=== PATIENT | male | born 1970 ===

== ENCOUNTER 2018-04-30 12:14 | Emergency (ER) | payer MEDICARE, MEDICAID ==
[2018-04-30 12:14] VITALS: BMI 24.7
[2018-04-30 12:46] VITALS: RESP 18; O2SAT 100
--- NOTE | 2018-04-30 14:11 | C.PDOC ---
History Of Present Illness 48yo male, comes to ER complaining of epigastric pain. Patient has a history of ESRD and is on dialysis MWF. Patient states his symptoms are similar to 3 prior episodes of pancreatitis. Otherwise, patient denies any fever, chills, chest pain, vomiting, diarrhea. He offers no additional medical complaints. Time Seen by Provider: 04/30/18 13:16 Chief Complaint (Nursing): Abdominal Pain History Per: Patient History/Exam Limitations: no limitations Onset/Duration Of Symptoms: Days Current Symptoms Are (Timing): Still Present Location Of Pain/Discomfort: Epigastric Quality Of Discomfort: "Pain" Past Medical History Reviewed: Historical Data, Nursing Documentation, Vital Signs Vital Signs: Last Vital Signs Temp 99 F 04/30/18 14:30 Pulse 50 L 04/30/18 14:30 Resp 18 04/30/18 14:30 BP 111/72 04/30/18 14:30 Pulse Ox 100 04/30/18 14:30 - Medical History PMH: Arthritis, Asthma, Fractures, HTN, Osteoporosis, End Stage Renal Disease, Chronic Kidney Disease Surgical History: Pacemaker Family History: States: Unknown Family Hx - Social History Hx Alcohol Use: No Hx Substance Use: No Review Of Systems Except As Marked, All Systems Reviewed And Found Negative. Constitutional: Negative for: Fever, Chills Cardiovascular: Negative for: Chest Pain Respiratory: Negative for: Shortness of Breath Gastrointestinal: Positive for: Abdominal Pain Physical Exam - Physical Exam Appears: Non-toxic, No Acute Distress Skin: Warm, Dry Head: Atraumatic, Normacephalic Eye(s): bilateral: Normal Inspection, PERRL, EOMI Chest: Symmetrical Cardiovascular: Rhythm Regular Respiratory: Normal Breath Sounds Gastrointestinal/Abdominal: Tenderness (epigastric), No Guarding, No Rebound, Other (thin abodmen) Back: Other (severe kyphosis) Extremity: Other (weak, thin extremities. ) Neurological/Psych: Oriented x3 Additional Physical Exam Comments: Patient is weak, thin and is typically wheel chair bound due to hyperparathyroidm, low calcium and bone weakness. Patient has internal cardiac pacemaker due to LBBB, placed endoscopically but not on the chest. Short of stature ED Course And Treatment - Laboratory Results Result Diagrams: 04/30/18 14:35 04/30/18 14:35 Lab Interpretation: Normal (lipase neg.) O2 Sat by Pulse Oximetry: 100 (RA) Pulse Ox Interpretation: Normal - Radiology CXR: Interpreted by Me CXR Interpretation: Yes: No Acute Disease - Other Rad abd x 2 X-Ray: Interpreted by Me (increased bowel gas, no obst/FA) Reevaluation Time: 15:45 Reassessment Condition: Improved Medical Decision Making Medical Decision Making: Plan: * Labs * Morphine 4mg IVP * CT Abdomen/Pelvis w/o contrast * XR Obstructive series bowel discomfort LOW susp of mes ischemia/pancreatitis normal labs/Lipase CT no acute findings. Disposition Doctor Will See Patient In The: Office Counseled Patient/Family Regarding: Studies Performed, Diagnosis - Disposition Disposition: HOME/ ROUTINE Disposition Time: 15:46 Condition: GOOD Forms: [employer] ([place]rian) - Clinical Impression Clinical Impression: Abdominal colic - Scribe Statement The provider has reviewed the documentation as recorded by the Jakob Ken Provider Attestation: All medical record entries made by the Jakob were at my direction and personally dictated by me. I have reviewed the chart and agree that the record accurately reflects my personal performance of the history, physical exam, medical decision making, and the department course for this patient. I have also personally directed, reviewed, and agree with the discharge instructions and disposition.
[2018-04-30 14:38] LABS: BASO # 0.1 K/uL (0.0-0.2); EOS # 0.1 K/uL (0.0-0.7); HEMOGLOBIN 13.1 g/dL (12.0-18.0); LYMPH # 0.9 K/uL (1.0-4.3); LYMPH % 13.1 % (20.0-40.0); MEAN CELL VOLUME 91.5 fL (80.0-94.0); MEAN CORPUSCULAR HEMOGLOBIN 31.3 pg (27.0-31.0); MEAN CORPUSCULAR HGB CONC 34.3 g/dL (33.0-37.0); MEAN PLATELET VOLUME 8.2 fL (7.2-11.7); MONO # 0.5 K/uL (0.0-0.8); MONO % 7.3 % (0.0-10.0); NEUT # 5.3 K/uL (1.8-7.0); NEUT % 77.6 % (50.0-75.0); RBC 4.19 Mil/uL (4.40-5.90); RED CELL DISTRIBUTION WIDTH 16.4 % (11.5-14.5); WHITE BLOOD COUNT 6.9 K/uL (4.8-10.8)
[2018-04-30] MEDS ORDERED: Morphine 4 MG/ML VIAL ONE (14:39)
[2018-04-30 14:44] VITALS: PULSE 50
[2018-04-30 14:58] LABS: ALB/GLOB RATIO 1.3 (1.0-2.1); ALBUMIN 4.7 g/dL (3.5-5.0)
--- NOTE | 2018-04-30 15:04 | CT ---
Date of service: 04/30/2018 PROCEDURE: CT Abdomen and Pelvis without intravenous contrast HISTORY: epigastric, h/o pancreatitis x 3 COMPARISON: None. TECHNIQUE: CT scan of the abdomen and pelvis was performed without administration of intravenous contrast. Oral contrast was not administered. Coronal and sagittal reformatted images were obtained. . Radiation dose: Total exam DLP = 218.74 mGy-cm. This CT exam was performed using one or more of the following dose reduction techniques: Automated exposure control, adjustment of the mA and/or kV according to patient size, and/or use of iterative reconstruction technique. FINDINGS: LOWER THORAX: There is bibasilar subsegmental atelectasis. LIVER: Normal in size. No intrahepatic ductal dilatation. GALLBLADDER AND BILE DUCTS: The gallbladder is distended. No calcified gallstones or wall thickening. PANCREAS: Evaluation of the pancreas is difficult due to paucity of intraperitoneal fat and absence of oral and intravenous contrast. There is mild pancreatic ductal dilatation which measures 8 mm. SPLEEN: Moderate splenomegaly. ADRENALS: Normal in size. No discrete nodule. KIDNEYS AND URETERS: Small atrophic kidneys. No hydronephrosis. VASCULATURE: No aortic aneurysm. The extensive atherosclerotic vascular calcifications secondary to renal failure. BOWEL: The small bowel loops are normal in caliber. The colon is normal in size. No bowel dilatation or wall thickening. No bowel obstruction. APPENDIX: The appendix is not distinctly identified. No inflammatory changes in the right lower quadrant PERITONEUM: No free fluid. No free air. LYMPH NODES: No enlarged lymph nodes. BLADDER: Well distended and grossly normal in appearance. REPRODUCTIVE: The uterus is normal in size BONES: No acute fracture. Osseous changes of renal osteodystrophy. Status post total left hip arthroplasty. OTHER FINDINGS: None. IMPRESSION: This examination is limited in the absence of oral contrast, intravenous contrast and due to paucity of intraperitoneal fat. Allowing for this, no CT evidence for acute pancreatitis. No acute abdominal or pelvic abnormality. Moderate splenomegaly.
--- NOTE | 2018-04-30 15:37 | RAD ---
Date of service: 04/30/2018 PROCEDURE: Radiographs of the chest and abdomen (obstructive series) HISTORY: Abdominal pain. COMPARISON: April 30, 2018. CT abdomen and pelvis TECHNIQUE: AP radiograph of the chest, with upright and supine radiographs of the abdomen. FINDINGS: CHEST: Lungs: Clear. Cardiovascular: Cardiomegaly. No evidence of acute, significant cardiovascular disease. Pleura: No pleural fluid. No pneumothorax. Other findings: None. ABDOMEN AND PELVIS: Bowel: Unremarkable bowel gas pattern. No evidence of mechanical obstruction. Free air: None. Bones: Status post left MELODY. Chronic changes right pelvis/right hip. Other findings: None. IMPRESSION: Unremarkable radiographs of chest and abdomen. No evidence of mechanical bowel obstruction.
[2018-04-30 16:00] VITALS: BP 104/67; TEMP 99.2
== END 2018-04-30 16:35 | disposition home or self-care (01) ==
LOC: C.ER 12:14
DX: R10.84 Generalized abdominal pain (principal); I12.0 Hypertensive chronic kidney disease with stage 5 chronic kidney disease or end stage renal disease; N18.6 End stage renal disease; Z99.2 Dependence on renal dialysis
CPT/HCPCS: 74022; 74176; 80053; 83690; 85025; 96374; 99284; J2270

== ENCOUNTER 2018-05-17 06:07 | Day surgery (SDC) | payer MEDICARE, MEDICAID ==
[2018-05-17] MEDS ORDERED: Propofol 10 mg/ml Inj (20 ML) ONE (07:44)
[2018-05-17] MEDS ORDERED: Sodium Chloride 0.9% 500 ML IV ONE (08:00)
[2018-05-17] MEDS ORDERED: Lidocaine Hydrochloride 5 ML INJ ONE (08:03)
[2018-05-17] MEDS ORDERED: Methylene Blue 10 mg/mL(10ml) IV ONE (08:03)
[2018-05-17] MEDS ORDERED: Midazolam 2 MG/2 ML VIAL ONE (08:05)
[2018-05-17 08:11] VITALS: PULSE 50
[2018-05-17 10:23] VITALS: TEMP 96.7
[2018-05-17 10:26] VITALS: O2SAT 96
[2018-05-17 10:37] VITALS: BP 85/50; RESP 15
== END 2018-05-17 11:00 | disposition home or self-care (01) ==
LOC: C.ENDO 06:07
PROVIDERS: ATTEND Internal Medicine Gastroenterology
DX: Z12.11 Encounter for screening for malignant neoplasm of colon (principal); K51.30 Ulcerative (chronic) rectosigmoiditis without complications; K64.1 Second degree hemorrhoids; K29.50 Unspecified chronic gastritis without bleeding; I12.0 Hypertensive chronic kidney disease with stage 5 chronic kidney disease or end stage renal disease; N18.6 End stage renal disease; Z99.2 Dependence on renal dialysis; R00.1 Bradycardia, unspecified; Z95.0 Presence of cardiac pacemaker; D64.9 Anemia, unspecified; E21.3 Hyperparathyroidism, unspecified; J45.909 Unspecified asthma, uncomplicated; G89.29 Other chronic pain; Z98.890 Other specified postprocedural states; Z96.642 Presence of left artificial hip joint; Z79.82 Long term (current) use of aspirin; Z79.899 Other long term (current) drug therapy; Z88.0 Allergy status to penicillin; Z88.3 Allergy status to other anti-infective agents
CPT/HCPCS: 36415; 45380; 80048; 88305; J2250; J2704; J3010; J7030; J7040